=== PATIENT | male | born 1980 | race Caucasian/White ===

== ENCOUNTER 2021-04-26 12:04 | Emergency (ER) | payer BC ==
[2021-04-26 12:42] VITALS: BP 134/71; PULSE 99; RESP 20; TEMP 98
[2021-04-26] MEDS ORDERED: GELATIN SPONGE,ABSORB (SMALL) 1 EACH SPONGE TOPICAL STA ×2 (13:53→14:06)
[2021-04-26] MEDS ORDERED: DIPH,PERTUS(ACELL)TETVAC-LF 0.5 ML VIAL IM ONE (14:13)
--- NOTE | 2021-04-26 14:17 | ED ---
Wound/Laceration HPI - General Chief Complaint: Wound/Laceration Stated Complaint: Rt Finger Lac Time Seen by Provider: 04/26/21 13:18 Source: patient Mode of arrival: ambulatory Limitations: no limitations - History of Present Illness Initial Comments: Patient is a 40-year-old male who presents with finger laceration. Patient states he was slicing cabbage with a mandolin when he sliced the tip of the fifth digit on the right hand. The wound was obtained in a clean environment, he washed the wound with water and applied pressure at home. He denies numbness, tingling, loss of range of motion, radiation of pain to hand. - Related Data Allergies Allergy/AdvReac Type Severity Reaction Status Date / Time erythromycin base Allergy Anaphylaxis Verified 04/26/21 12:42 [From Pediazole] sulfisoxazole Allergy Anaphylaxis Verified 04/26/21 12:42 [From Pediazole] Review of Systems ROS Statement: Those systems with pertinent positive or pertinent negative responses have been documented in the HPI. ROS Other: All systems not noted in ROS Statement are negative. Past Medical History Past Medical History: Hypertension History of Any Multi-Drug Resistant Organisms: None Reported Past Surgical History: No Surgical Hx Reported Past Psychological History: No Psychological Hx Reported Smoking Status: Never smoker Past Alcohol Use History: None Reported Past Drug Use History: None Reported General Exam Limitations: no limitations General appearance: alert, in no apparent distress Head exam: Present: atraumatic, normocephalic, normal inspection Eye exam: Present: normal appearance, PERRL, EOMI. Absent: scleral icterus, conjunctival injection, periorbital swelling Neck exam: Present: normal inspection Right Hand Wrist exam: Present: full ROM, laceration (Circular 1 cm x 1 cm). Absent: tenderness, swelling Vascular: Present: normal capillary refill Neurological exam: Present: alert, oriented X3, CN II-XII intact Psychiatric exam: Present: normal affect, normal mood Skin exam: Present: warm, dry, intact, normal color. Absent: rash Course Vital Signs 04/26/21 12:39 Temperature 98 F Pulse Rate 99 Respiratory 20 Rate Blood Pressure 134/71 O2 Sat by Pulse 99 Oximetry Medical Decision Making - Medical Decision Making Patient is a 40-year-old male who presents to the ER for evaluation of finger laceration. Located on the distal tip of the right fifth digit. Obtained while he was slicing vegetables. At home he rinsed the wound with water and applied pressure. He has full range of motion, full sensation. The wound is a circular shape measuring approximately 1 cm x 1 cm. Foam gel was applied and secured with gauze and tape. Advised patient to keep foam gel on for 2 days. Remove by soaking. Tetanus was not up-to-date, updated Tdap for signs of infection such as increased redness, swelling, pain, discharge, difficulty with movement. Report back to ER with worsening symptoms or onset of new alarming symptoms. Answered all questions. Follow-up with PCP in one week. The patient conveyed verbal understanding and agreed to the plan. Disposition Clinical Impression: Laceration Disposition: HOME SELF-CARE Condition: Good Instructions (If sedation given, give patient instructions): Acute Wound Care (ED) Is patient prescribed a controlled substance at d/c from ED?: No Referrals: Damari Tellez MD [Primary Care Provider] - 05/01/21 Time of Disposition: 14:16
== END 2021-04-26 14:21 | disposition home or self-care (01) ==
LOC: EC 12:04
DX: S61.216A Laceration without foreign body of right little finger without damage to nail, initial encounter (principal); I10 Essential (primary) hypertension; Z23 Encounter for immunization; W26.0XXA Contact with knife, initial encounter
CPT/HCPCS: 90471; 90715; 99282